=== PATIENT | female | born 1985 | race African-American/Black ===

== ENCOUNTER 2022-01-21 14:36 | Emergency (ER) | payer OTHER ==
[2022-01-21 14:58] VITALS: BMI 17.7
[2022-01-21 18:22] VITALS: BP 105/57; PULSE 76; TEMP 98.7
== END 2022-01-21 18:22 | disposition home or self-care (01) ==
LOC: JER 14:36
DX: Z00.00 Encounter for general adult medical examination without abnormal findings (principal)
CPT/HCPCS: 82962; 93005; 93010; 99283-25